=== PATIENT | female | born 2000 | race Hispanic/Latino ===

== ENCOUNTER 2021-05-11 22:26 | Emergency (ER) | payer OTHER ==
--- NOTE | 2021-05-11 23:36 | EDPHYS ---
Physician Documentation [facility] – [place], [place] Name: Radha Maya Age: 20 yrs Sex: Female : 2000 Arrival Date: 05/11/2021 Time: 22:31 Bed 23 Private MD: ED Physician Jorge Luis Landaverde HPI: 05/11 23:15 This 20 yrs old Female presents to ER via Ambulatory with complaints of Foot kb Injury. 23:15 The patient presents with an injury, pain, swelling, tenderness. The complaints affect kb the right foot. Context: The problem was sustained at home, resulted from a heavy object falling, the patient can partially bear weight, the patient is able to ambulate. Onset: The symptoms/episode began/occurred just prior to arrival. Modifying factors: The symptoms are alleviated by nothing, the symptoms are aggravated by weight bearing, movement. Associated signs and symptoms: Pertinent positives: swelling, Pertinent negatives: calf tenderness, fever, nausea, numbness, rash, tingling, vomiting, warmth, weakness. Severity of symptoms: At their worst the symptoms were moderate, in the emergency department the symptoms are unchanged. The patient has not experienced similar symptoms in the past. The patient has not recently seen a physician. 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 - Social history:: Smoking status: Patient denies any tobacco usage or history of. ROS: 23:14 Constitutional: Negative for fever, chills, and weight loss. kb 23:14 MS/extremity: Positive for ecchymosis, pain, swelling, tenderness, of the dorsum of right foot. 23:14 Skin: Positive for ecchymosis, hematoma, swelling, of the dorsum of right foot. 23:14 All other systems are negative. Exam: 23:14 Constitutional: This is a well developed, well nourished patient who is awake, alert, kb and in no acute distress. Head/Face: Normocephalic, atraumatic. ENT: Moist Mucous membranes Respiratory: Respirations even and unlabored. No increased work of breathing, no retractions or nasal flaring. Neuro: Awake and alert, GCS 15, oriented to person, place, time, and situation. Moves all extremities. Normal gait. Psych: Awake, alert, with orientation to person, place and time. Behavior, mood, and affect are within normal limits. 23:14 Musculoskeletal/extremity: Extremities: grossly normal except: noted in the dorsum of right foot: decreased ROM, ecchymosis, pain, swelling, tenderness, ROM: limited active range of motion due to pain, Circulation is intact in all extremities. Sensation intact. Weight bearing: can bear weight with assistance only. 23:14 Skin: injury, hematoma right foot. Vital Signs: 22:41 BP 128 / 86; Pulse 78; Resp 18; Pulse Ox 100% ; Pain 4/10; ld1 MDM: 22:38 Patient medically screened. 23:13 Data reviewed: vital signs, nurses notes. Data interpreted: Pulse oximetry: on room air kb is 100 %. Interpretation: normal. 23:35 Counseling: I had a detailed discussion with the patient and/or guardian regarding: the kb historical points, exam findings, and any diagnostic results supporting the discharge/admit diagnosis, radiology results, the need for outpatient follow up, a family practitioner, to return to the emergency department if symptoms worsen or persist or if there are any questions or concerns that arise at home. 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 Exp: ld1 01/20/2023. Lot #: [id number]. } Route: IM; Site: right deltoid; 22:56 Follow up: Response: No adverse reaction ld1 22:55 Drug: Ibuprofen 800 mg Route: PO; ld1 22:56 Follow up: Response: No adverse reaction ld1 Disposition Summary: 05/11/21 23:35 Discharge Ordered Location: Home Condition: Stable kb Diagnosis - Contusion of right foot kb Followup: kb - With: Private Physician - When: 2 - 3 days - Reason: Recheck today's complaints, Continuance of care, Re-evaluation by your physician Followup: kb - With: Emergency Department - When: As needed - Reason: Worsening of condition Discharge Instructions: - Discharge Summary Sheet kb - Hematoma, [id number] kb - Contusion, [id number] kb Forms: - Medication Reconciliation Form kb - Thank You Letter kb - Work release form kb - Antibiotic Education kb - Prescription Opioid Use kb Addendum: 05/14/2021 15:28 Co-signature as Attending Physician, Jorge Luis Landaverde MD I agree with the assessment and t w4 plan of care. Signatures: Dispatcher [employer] EDMS Jennifer Fulton, CNC MANUFACTURING ENGINEER-C CNC MANUFACTURING ENGINEER-Jorge Luis Hatfield MD MD tw4 Elin Park, RN RN ld1
--- NOTE | 2021-05-11 23:36 | ER ---
Nurse's Notes [facility] Name: Radha Maya Age: 20 yrs Sex: Female : 2000 Arrival Date: 05/11/2021 Time: 22:31 Bed 23 Private MD: Diagnosis: Contusion of right foot Presentation: 05/11 22:41 Chief complaint: Patient states: Headboard of bed fell on left foot. Coronavirus ld1 screen: At this time, the client does not indicate any symptoms associated with coronavirus-19. Ebola Screen: No symptoms or risks identified at this time. Initial Sepsis Screen: Does the patient meet any 2 criteria? No. Patient's initial sepsis screen is negative. Does the patient have a suspected source of infection? No. Patient's initial sepsis screen is negative. Risk Assessment: Do you want to hurt yourself or someone else? Patient reports no desire to harm self or others. Onset of symptoms was May 11, 2021. 22:41 Method Of Arrival: Ambulatory ld1 22:41 Acuity: LEON 4 ld1 Triage Assessment: 22:42 General: Appears in no apparent distress. comfortable, Behavior is calm, cooperative, ld1 appropriate for age. Pain: Complains of pain in left foot Pain does not radiate. Pain currently is 4 out of 10 on a pain scale. Quality of pain is described as throbbing, Pain began 1 hour ago. Is continuous. EENT: No signs and/or symptoms were reported regarding the EENT system. Neuro: Level of Consciousness is awake, alert, obeys commands, Oriented to person, place, time, situation. Cardiovascular: Capillary refill < 3 seconds Patient's skin is warm and dry. Respiratory: Airway is patent Respiratory effort is even, unlabored, Respiratory pattern is regular, symmetrical. GI: Abdomen is round non-distended. : No signs and/or symptoms were reported regarding the genitourinary system. Derm: No signs and/or symptoms reported regarding the dermatologic system. Musculoskeletal: Reports pain in left foot. Injury Description: headboard of bed fell on left foot. 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 - Social history:: Smoking status: Patient denies any tobacco usage or history of. Screenin:44 Abuse screen: Denies threats or abuse. Denies injuries from another. Nutritional ld1 screening: No deficits noted. Tuberculosis screening: No symptoms or risk factors identified. Fall Risk None identified. Assessment: 22:44 Reassessment: See triage assessment. ld1 Vital Signs: 22:41 BP 128 / 86; Pulse 78; Resp 18; Pulse Ox 100% ; Pain 4/10; ld1 ED Course: 22:31 Patient arrived in ED. es 22:38 Jennifer Fulton FNP-C [facility]. kb 22:38 Jorge Luis Landaverde MD is Attending Physician. kb 22:41 Elin Park, RN is Primary Nurse. ld1 22:42 Triage completed. ld1 22:42 Arm band placed on left wrist. ld1 22:44 Patient has correct armband on for positive identification. Bed in low position. Call ld1 light in reach. Side rails up X2. Pulse ox on. NIBP on. 22:44 No provider procedures requiring assistance completed. ld1 22:55 Foot Right 3 View XRAY In Process Unspecified. EDMS 23:56 Patient did not have IV access during this emergency room visit. ld1 Administered Medications: 22:55 Drug: Tetanus-Diphtheria Toxoid Adult 0.5 ml {Differential Repairer: [employer]. Exp: ld1 01/20/2023. Lot #: [id number]. } Route: IM; Site: right deltoid; 22:56 Follow up: Response: No adverse reaction ld1 22:55 Drug: Ibuprofen 800 mg Route: PO; ld1 22:56 Follow up: Response: No adverse reaction ld1 Outcome: 23:35 Discharge ordered by . kb 23:56 Discharged to home via wheelchair. ld1 23:56 Condition: stable 23:56 Discharge instructions given to patient, Instructed on discharge instructions, follow up and referral plans. Demonstrated understanding of instructions, follow-up care. 23:56 Patient left the ED. ld1 Signatures: Dispatcher [employer] EDMS Jennifer Fulton FNP-C SALESFORCE CONSULTANT-Jeri Sotelo Elin Park, RN RN ld1
[2021-05-12 00:47] VITALS: BP 128/86; O2SAT 100
--- NOTE | 2021-05-12 08:02 | RAD REPORT ---
EXAM DESCRIPTION: RAD - Foot Right 3 View - 05/11/2021 10:55 pm CLINICAL HISTORY: PAIN, blunt force trauma to the dorsum of the right foot COMPARISON: No comparisons FINDINGS: No fracture, dislocation or periosteal reaction. No acute bone or joint finding identified . No foreign body seen. There is prominent contusion and edema changes in the soft tissues overlying th e metatarsal bones. IMPRESSION: Soft tissue contusion and edema changes without fracture.
== END 2021-05-11 23:56 | disposition home or self-care (01) ==
LOC: ER 22:26
DX: S90.31XA Contusion of right foot, initial encounter (principal); W22.8XXA Striking against or struck by other objects, initial encounter; Y92.009 Unspecified place in unspecified non-institutional (private) residence as the place of occurrence of the external cause; Z23 Encounter for immunization
CPT/HCPCS: 90471; 99283

== ENCOUNTER 2023-07-23 22:55 | Emergency (ER) | payer OTHER ==
--- OUTSIDE RECORDS SUMMARY | 2023-07-23 22:59 | XMS REPORT | Continuity of Care Document ---
:2000 Author Organization [facility] t Address [address] [place] [address] [address] [place] [address] Care Team Providers Name Role Phone PCP, PATIENT DOES NOT HAVE A Primary Care Physician Unavaila Geraldine Estevez Attending Clinician GERALDINE AGUILAR Attending Clinician Unavailable GERALDINE AGUILAR Admitting Clinician Unavailable Payers Payer Name Policy Type Policy Number Effective Date Expiration Date S ource Problems Condition Condition Condition Status Onset Resolution Last Treating Co mments Source Name Details Category Date Date Treatment Clinician Date Contracept Contracept Disease Active 2016-11 U nivers ismael ismael 0-04 [facility] management [facility] [place] Irregular Irregular Disease Active 2016-11 Uni vers menstrual menstrual 0-04 ity of cycle cycle 00:00: [address] Allergies, Adverse Reactions, Alerts Allergy Allergy Status Severity Reaction(s) Onset Inactive Treating Comm ents Source Name Type Date Date Clinician NO KNOWN Drug Active Univers ALLERGIE Class ity of S [facility] Social History Social Habit Start Date Stop Date Quantity Comments Source Exposure to Not sure [facility] SARS-CoV-2 [facility] (event) Branch Alcohol intake 2022-01-15 2022-01-15 Current University 00:00:00 00:00:00 non-drinker of [facility] alcohol Branch (finding) Tobacco use and 2017-08-08 2017-08-08 Never used Universit y of exposure 00:00:00 00:00:00 [facility] Sex Assigned At [birth year] Universit y of 00:00:00 00:00:00 [facility] Smoking Status Start Date Stop Date Source Never smoker [facility] Branch Medications Ordered Filled Start Stop Current Ordering Indication Dosage Frequency Signature Comments Components Source Medication Medication Date Date Medication? Clinician (SIG) Name Name iopamidol 2021- No [id number] 100mL 100 mL, Univers (ISOVUE 01-15 Intravenou ity o f 370-500 mL) 19:00: 19:00 s, ONCE, 1 [place] injection 00 :00 dose, On Medica l 100 mL [place] Branch 01/15/22 at 1400, Routine NaCl 0.9% 2021- No 1000mL at 999 Uni vers (NS) bolus 01-15 mL/hr, ity of infusion 18:30: 19:18 1,000 mL, Giancarlo as 1,000 mL 00 :00 IV Medical Infusion, Branch ONCE, 1 dose, On 01/15/22 at 1330, STAT norgestimat 2017- Yes [id number] 1{tbl} Take 1 Univers e-ethinyl 0-04 tablet by ity o f estradiol 00:00: mouth [place] (ORTHO 00 daily. Medical TRI-CYCLEN Branch LO, 28,) 0.18/0.215/ 0.25 mg-25 mcg tablet Immunizations Ordered Filled Immunization Date Status Comments Sourc e Immunization Name Name TDAP (ADACEL) 2012-02-07 Completed [place] of VACCINE 00:00:00 [facility] Vital Signs Vital Name Observation Time Observation Value Comments Source Systolic blood 2022-01-15 19:00:00 131 mm[Hg] Univer sity of pressure [facility] Diastolic blood 2022-01-15 19:00:00 92 mm[Hg] Unive rsity of pressure [facility] Heart rate 2022-01-15 19:00:00 93 /min Universi ty of [facility] Respiratory rate 2022-01-15 19:00:00 14 /min Univ ersity of [facility] Oxygen saturation in 2022-01-15 19:00:00 99 /min University Arterial blood by [facility] Pulse oximetry Branch Body temperature 2022-01-15 17:01:00 36.94 [facility] Body weight 2022-01-15 17:01:00 119.296 kg [facility] Procedures Procedure Date / Time Performing Clinician Source Performed CT CHEST PULMONARY 2022-01-15 17:45:19 Geraldine Aguilar [facility] ANGIOGRAM Medical Branch XR CHEST 1 VW 2022-01-15 17:29:31 Geraldine Aguilar [facility] COVID-19 (ID NOW RAPID 2022-01-15 17:24:00 [facility]ine [facility] TESTING) Medical Branch TROPONIN I 2022-01-15 17:19:00 Geraldine Aguilar [facility] THYROID STIMULATING 2022-01-15 17:19:00 Geraldine Aguilar [facility] HORMONE [facility] Branch COMP. METABOLIC PANEL 2022-01-15 17:19:00 Geraldine Aguilar [facility] ([id number]) Medical Branch CBC WITH DIFF 2022-01-15 17:19:00 Geraldine Aguilar [facility] POCT TEST 2022-01-15 17:19:00 Geraldine Aguilar [facility] CONSENT/REFUSAL FOR 2022-01-15 16:55:13 Doctor Unassigned, No [facility] DIAGNOSIS AND TREATMENT Name [facility] NOTICE OF PRIVACY 2022-01-15 16:54:21 Doctor Unassigned, No [facility] PRACTICES Name [facility] Encounters Start End Encounter Admission Attending Care Care Encounter Source Date/Time Date/Time Type Type Clinicians Facility Department ID 2023-02-28 2023-02-28 Outpatient CASSANDRA TRUJILLO [id number] Angel 09:38:10 09:38:[id number] [facility] 2023-02-07 2023-02-07 Outpatient CASSANDRA TRUJILLO [id number] Angel 10:36:45 10:36:45 [id number] F [place] 2023-01-01 2023-01-01 Outpatient CASSANDRA TRUJILLO [id number] Angel 11:23:30 11:23:[address] [facility] 2022-10-18 2022-10-18 Outpatient SFA SFA [id number] Angel 10:49:20 10:49:20 1214 [facility] [place] 2022-01-15 2022-01-15 Emergency Laruen [facility] [id number] Univers 12:06:00 14:22:00 Geraldine Dos Santos [place] [id number] i [facility] [id number] [facility] [id number] [place] [id number] Branch 2022-01-15 2022-01-15 Emergency X LAUREN [facility] ERT [id number] Univers 12:06:00 14:22:00 GERALDINE jj [facility] Results Test Description Test Time Test Comments Results Result Comments Source CULTURE, URINE 2023-03-02 SPECIMEN NUMBER: 11:17:17 [id number] CULTURE, URINE SPECIMEN NUMBER: [id number] SPECIMEN COMMENT: URINE SOURCE: URINE REPORT STATUS: FINAL ISOLATE NUMBER 1: IDENTIFICATION: 03/02/2023 10-50,000 CFU/ML BETA-STREPTOCOCCUS NOT GROUP A OR B ADDITIONAL OBSERVATIONS: PENICILLIN AND AMPICILLIN ARE DRUGS OF CHOICE FOR TREATMENT OF B-HEMOLYTIC STREPTOCOCCAL INFECTIONS. SUSCEPTIBILITY TESTING OF PENICILLIN AND OTHER B-LACTAMS APPROVED BY THE US FOOD AND DRUG ADMINISTRATION FOR TREATMENT OF B-HEMOLYTIC STREPTOCOCCAL INFECTIONS NEED NOT BE PERFORMED ROUTINELY. ADDITIONAL OBSERVATIONS: 03/02/2023 10-50,000 CFU/ML UROGENITAL RONALDO PRESENT NO COMMON PATHOGENS [facility] has important pathology staff changes effective 01/03/2023. New pathology staff will provide uninterrupted, excellent patient care and clinical consultation. See URL: [email or web address] UNLESS OTHERWISE INDICATED, ALL TESTING PERFORMED AT [facility] [address] [place] [id number] AUTOMOTIVE COLLISION REPAIR INSTRUCTOR: ILDEFONSO LOPES M.D. CLIA NUMBER [id number] [facility] [place]. [id number] THYROID STIMULATING HORMONE 2022-01-15 18:37:55 Test Item Value Reference Range Interpretation Comme nts TSH (test code = 0136294454) See_Comment [Automated message] The system which generated this result transmitted ref erence range: 0.45 - 4.70 mIU/L. T he reference range was not used to interpret this result as analilia l/abnormal. Lab Interpretation (test code = Normal 05848-6) [facility] [id number] 18:19:17 Test Item Value Reference Interpretation Comments Range TROPONIN I (test 0.002 ng/mL See_Comment [Automated code = 7495808579) message] The system which generated this result transmitted reference range : <=0.034. The reference range was not used to interpret this result as normal/abnormal . HOA (test code = Reference (Normal) HOA) Range (defined by the 99th percentile reference limit): <= 0.034 ng/mL Note: Cardiac troponin begins to rise 3-4 hours after the onset of ischemia. Repeat in 4-6 hours if the sample was drawn within 3-4 hours of the onset of the symptom and found normal. Diagnosis of myocardial injury is made with acute changes in cTn concentrations with at least one serial sample above the 99th percentile upper reference limit (URL), taken together with the patient's clinical presentation. Biotin has been reported to cause a negative bias, interpret results relative to patient's use of biotin. Lab Interpretation Normal (test code = 45818-5) [facility] ([id number])2022-01-15 18:09:52 Test Item Value Reference Range Interpretation Comments NA (test code = 138 mmol/L 135-145 5752129511) K (test code = 4.2 mmol/L 3.5-5.0 7523976533) CL (test code = 104 mmol/L 98-108 6887552475) CO2 TOTAL (test code = 21 mmol/L 23-31 L 5974192696) AGAP (test code = 2-16 4120879640) BUN (test code = 7 mg/dL 7-23 8863939783) GLUCOSE (test code = 106 mg/dL 70-110 7607353019) CREATININE (test code = 0.53 mg/dL 0.50-1.04 9648978040) TOTAL BILI (test code = 0.4 mg/dL 0.1-1.5 3456986749) CALCIUM (test code = 9.5 mg/dL 8.6-10.6 8624901002) T PROTEIN (test code = 7.8 g/dL 6.3-8.2 7755070660) ALBUMIN (test code = 4.6 g/dL 3.5-5.0 6931290540) ALK PHOS (test code = 94 U/L 34-122 7566677750) ALTv (test code = 36 U/L 5-35 H 1742-6) AST(SGOT) (test code = 43 U/L 13-40 H 8310259455) eGFR (test code = mL/min/1.73m2 0183911330) HOA (test code = HOA) Association of Glomerular Filtration Rate (GFR) and Staging of Kidney Disease* + --+ --+ ------+| GFR (mL/min/1.73 m2) ?| With Kidney Damage ?| ?Without Kidney Damage+ --------+ --------+ +| ?>90 ?| ?Stage one ?| ? Normal ?+ ---+ ---+ -------+| ?60-89 ?| ?Stage two ?| ? Decreased GFR ? + --+ --+ ------+| ?30-59 ?| ?Stage three ?| ? Stage three ? + --+ --+ ------+| ?15-29 ?| ?Stage four ? | ? Stage four ?+ ---+ ---+ -------+| ?<15 (or dialysis) ? ?| ?Stage five ? | ? Stage five ?+ ---+ ---+ -------+ *Each stage assumes the associated GFR level has been in effect for at least three months. ?Stages 1 to 5, with or without kidney disease, indicate chronic kidney disease. Notes: Determination of stages one and two (with eGFR >59mL/min/1.73 m2) requires estimation of kidney damage for at least three months as defined by structural or functional abnormalities of the kidney, manifested by either:Pathological abnormalities or Markers of kidney damage (including abnormalities in the composition of the blood or urine or abnormalities in imaging tests). Lab Interpretation Abnormal (test code = 59597-5) [facility] WITH [id number] 17:33:52 Test Item Value Reference Range Interpretation Comments WBC (test code = See_Comment [Automated message] 6690-2) The system [employer] generated this result transmitted ref erence range: 4.30 - 1 1.10 10*3/?L. The re ference range was not u sed to interpret this result as normal/abnor mal. RBC (test code = See_Comment [Automated message] 789-8) The system [employer] generated this result transmitted ref erence range: 3.93 - 5 .25 10*6/?L. The re ference range was not u sed to interpret this result as normal/abnor mal. HGB (test code = 13.8 g/dL 11.6-15.0 718-7) HCT (test code = 43.4 % 35.7-45.2 4544-3) MCV (test code = 84.1 fL 80.6-95.5 787-2) MCH (test code = 26.7 pg 25.9-32.8 785-6) MCHC (test code = 31.8 g/dL 31.6-35.1 786-4) RDW-SD (test code 41.7 fL 39.0-49.9 = 14692-0) RDW-CV (test code 13.5 % 12.0-15.5 = 788-0) PLT (test code = See_Comment [Automated message] 777-3) The system [employer] generated this result transmitted ref erence range: 166 - 35 8 10*3/?L. The re ference range was not u sed to interpret this result as normal/abnor mal. MPV (test code = 9.9 fL 9.5-12.9 66973-4) NRBC/100 WBC (test See_Comment [Automat ed message] code = 3833083925) The [employer] which generated this result transmitted ref erence range: 0.0 - 10 .0 /100 WBCs. The refer ence range was not u sed to interpret this result as normal/abnor mal. NRBC x10^3 (test <0.01 See_Comment [Automated message] code = 7251131563) The syste m which generated this result transmitted ref erence range: 10*3/?L. The reference range was not used to interpr et this result as normal/abnormal . GRAN MAT (NEUT) % 42.0 % (test code = 770-8) IMM GRAN % (test 0.30 % code = 2240255680) LYMPH % (test code 47.5 % = 736-9) MONO % (test code 8.6 % = 5905-5) EOS % (test code = 0.6 % 713-8) BASO % (test code 1.0 % = 706-2) GRAN MAT 2.65 10*3/uL 1.88-7.09 x10^3(ANC) (test code = 6700660346) IMM GRAN x10^3 <0.03 0.00-0.06 (test code = 5515816855) LYMPH x10^3 (test 3.00 10*3/uL 1.32-3.29 code = 731-0) MONO x10^3 (test 0.54 10*3/uL 0.33-0.92 code = 742-7) EOS x10^3 (test 0.04 10*3/uL 0.03-0.39 code = 711-2) BASO x10^3 (test 0.06 10*3/uL 0.01-0.07 code = 704-7) [facility] [id number] 17:19:00 Test Item Value Reference Range Interpretation Comments POCT PREG (test code = 1605) neg On board controls acceptable with present C Line (test code = 3574) POCT PREG LOT # (test code = 3575) [id number] POCT PREG TEST DATE (test 12/28/2022 code = 3576) Lab Interpretation (test code = Normal 66608-7) [facility], [id number] 08:49:42 Test Item Value Reference Range Interpretation Comments HEPATITIS A IgM (test NON-REACTIVE NON-REACTIVE code = 27938) HEPATITIS B CORE IgM NON-REACTIVE NON-REACTIVE (test code = 4644) HEPATITIS B SURF AG NON-REACTIVE NON-REACTIVE (test code = 2739) HEPATITIS C ANTIBODY NON-REACTIVE NON-REACTIVE (test code = 4675) INTERPRETATION (NOTE) Hepatitis A HEPATITIS A: (test code sero logy shows no = 2552) evidence of acu te hepatitis A. INTERPRETATION (NOTE) Hepatitis B HEPATITIS B: (test code sero logy shows no = 52038) evidence of acu te hepatitis B and no indication of exposure to hepatitis B vir us in the previous kamron eight months. INTERPRETATION (NOTE) Hepatitis C HEPATITIS C: (test code sero logy shows no = 40883) evidence of exposure to hepatitisC viru s at this time. I t can take up to 12 months after exposure tothe hepatitis C vir us for antibodies to become detectab le in the blood in certain patient s. TSH, THIRD [id number] 06:02:45 Test Item Value Reference Range Interpretation Comments TSH, THIRD 1.030 UIU/ML 0.400-4.100 UNLESS OTHERWI SE GENERATION (test INDICATED, ALL TESTING code = 2821) PERFORMED [facility] [place] [place] [address] LABOR ATORY DIRECTOR: SUNI GRIGSBY M.D. IA NUMBER [id number] CAP ACCREDITATION N O. [id number] HEMOGLOBIN [id number] 05:14:32 Test Item Value Reference Range Interpretation Comments HEMOGLOBIN A1c (test code = 04112) 5.4 % 4.2-5.6 COMPREHENSIVE METABOLIC [id number] 05:09:10 Test Item Value Reference Range Interpretation Comments GLUCOSE (test code = 109 MG/DL 70-99 H 2216) BUN (test code = 8 MG/DL 6-20 2207) CREATININE (test 0.62 MG/DL 0.60-1.30 code = 2214) eGFR (2020 CKD-EPI) 131 >60 (test code = 74132) ML/MIN/1.73 CALC BUN/CREAT (test 13 RATIO 6-28 code = 2235) SODIUM (test code = 139 MEQ/L 304-073 1821) POTASSIUM (test code 4.3 MEQ/L 3.5-5.4 = 2227) CHLORIDE (test code 103 MEQ/L 95-107 = 2215) CARBON DIOXIDE (test 24 MEQ/L 19-31 code = 2206) CALCIUM (test code = 9.9 MG/DL 8.5-10.5 2208) PROTEIN, TOTAL (test 7.7 G/DL 6.1-8.3 code = 2229) ALBUMIN (test code = 4.4 G/DL 3.5-5.2 2200) CALC GLOBULIN (test 3.3 G/DL 1.9-3.7 code = 2240) CALC A/G RATIO (test 1.3 RATIO 1.0-2.6 code = 2234) BILIRUBIN, TOTAL <0.2 MG/DL See_Comment [Automated message] (test code = 2207) The syste m which generated this result transmit jamel reference range : <=1.2. The refe rence range was not u sed to interpret th is result as normal/abnormal . ALKALINE PHOSPHATASE 130 U/L 40-116 H (test code = 2203) AST (test code = 43 U/L 9-40 H 2217) ALT (test code = 65 U/L 5-40 H 2218) LIPID [id number] 05:09:10 Test Item Value Reference Range Interpretation Comments CHOLESTEROL (test 126 MG/DL <200 code = 2210) TRIGLYCERIDES (test 110 MG/DL <150 code = 2232) HDL CHOLESTEROL (test 34 MG/DL >39 L code = 2220) CALC LDL CHOL (test 72 MG/DL <100 NOTE: C ALCULATED LDL code = 2237) IS BASED ON ROLA-UPTON METHOD WHICHINCLUDES ADJUSTABLE TRIGLYCERIDE:VL DL CHOLESTEROL RAT IO.THIS FACTOR VARIES B Y MEASURED TRIGLY CERIDE AND NON-HDLCHOL ESTEROL CONCENTRATIONS WITH INCREASED CALCU LATED LDL SEENIN HIGH ER TRIGLYCERIDE OR LOWER NON-HDL SPECIME NS. FOR MOREINFORMATION , SEE CLIENT ANNOUNCE MENT AT [email or web address] RISK RATIO LDL/HDL 2.12 RATIO <3.22 (test code = 2237) CBC W/AUTO DIFF WITH [id number] 04:47:57 Test Item Value Reference Range Interpretation Comments WBC (test code = 8.1 K/UL 3.5-11.0 1001) RBC (test code = 5.02 M/UL 3.80-5.40 1002) HEMOGLOBIN (test code 13.5 G/DL 11.5-15.5 = 1003) HEMATOCRIT (test code 40.0 % 34.0-45.0 = 1004) MCV (test code = 79.7 fL 80.0-99.0 L 1005) MCH (test code = 26.9 PG 25.0-33.0 1006) MCHC (test code = 33.8 G/DL 31.0-36.0 1007) RDW (test code = 12.6 % 11.5-15.0 1038) NEUTROPHILS (test 65.2 % code = 1008) LYMPHOCYTES (test 27.0 % code = 1010) MONOCYTES (test code 6.3 % = 1011) EOSINOPHILS (test 0.6 % code = 1012) BASOPHILS (test code 0.7 % = 1013) IMMATURE GRANULOCYTES 0.2 % (test code = 1036) NUCLEATED RBCS (test 0.0 /100 WBC'S See_Comment [Aut omated code = 1065) message] The sy stem which generated this result transmitted reference range : 0.0. The refere nce range was not u sed to interpret th is result as normal/abnormal . PLATELET COUNT (test 377 K/UL 130-400 code = 1015) ABSOLUTE NEUTROPHILS 5.29 K/UL 1.50-7.50 (test code = 1066) ABSOLUTE LYMPHOCYTES 2.19 K/UL 1.00-4.00 (test code = 1067) ABSOLUTE MONOCYTES 0.51 K/UL 0.20-1.00 (test code = 1068) ABSOLUTE EOSINOPHILS 0.05 K/UL 0.00-0.50 (test code = 1040) ABSOLUTE BASOPHILS 0.06 K/UL 0.00-0.20 (test code = 1069) ABS IMMATURE 0.02 K/UL 0.00-0.10 GRANULOCYTES (test code = 1020) ABS NUCLEATED RBCS 0.00 K/UL 0.00-0.11 (test code = 82514)"
[2023-07-23] MEDS ORDERED: NA CHLORIDE 0.9% 1,000 ML ONE (23:52)
[2023-07-24] LABS: Absolute Lymphocytes (CBC) 3.3 K/uL (0.7-4.9); Hematocrit 39.9 % (36.0-45.0); MCV 81.2 fL (80-100); MPV 8.3 fL (7.6-11.3); Platelets 390 thou/uL (152-406); RBC Red Blood Cell Count 4.91 M/uL (3.86-4.86)
[2023-07-24 00:06] LABS: Potassium 3.4 mEq/L (3.5-5.1)
[2023-07-24] MEDS ORDERED: KETOROLAC 30 MG/ML INJ ONE (02:18)
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
[2023-07-24 04:32] VITALS: BP 146/94; TEMP 98.8; O2SAT 100
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
== END 2023-07-24 03:26 | disposition home or self-care (01) ==
LOC: ER 22:55
DX: S50.12XA Contusion of left forearm, initial encounter (principal)
CPT/HCPCS: 85025; 80048; 36415; 84703; 70450; 72125; 71260; 74177; 73090; Q9967; J7030